=== PATIENT | female | born 1990 | race Caucasian/White ===

== ENCOUNTER → 2019-12-16 | Outpatient (CLI) | payer OTHER | LOC: ZCOL.LAB 14:45 | DX: J02.9 Acute pharyngitis, unspecified (principal); Z20.828 Contact with and (suspected) exposure to other viral communicable diseases ==

== ENCOUNTER 2021-08-30 15:05 | Outpatient (CLI) | payer OTHER ==
[~2021-08-30] VITALS: Ht 152.4 cm; Wt 123.6 kg
[2021-08-30 15:30] VITALS: BP 130/70; PULSE 93; TEMP 98.4
--- NOTE | 2021-08-30 15:30 | NUR ---
G3L2 at 38.0 weeks gestation to LDR3 for a non stress test. She was sent over from the office for extended monitoring after a BPP of 09/02. Patient reports that she "doesn't feel baby much" and reports that she what she has felt is normal for her and baby. She denies CTX, LOF, or VB. Patient changed into fown, wedged to left side in bed. EFMs explained and applied. Plan of care reviewed.
[2021-08-30] MEDS ORDERED: PROTONIX 40MG T40 MG PO (15:35)
--- NOTE | 2021-08-30 16:25 | NUR ---
Reactive NST obtained. Patient states that she has an appointment with Dr. Stone at 1715 and wants to know if she needs to keep it. Per Dr. Stone patient to return to [facility] tomorrow 08/31/21 for a repeat NST and she does not need to attend her appointment. Patient does not have any questions today but would like a SVE. SVE completed and /2. Discharge instructions reviewed with patient and patient discharged home.
== END 2021-08-30 16:28 | disposition home or self-care (01) ==
LOC: LDRO 15:05
DX: O16.3 Unspecified maternal hypertension, third trimester (principal); Z3A.38 38 weeks gestation of pregnancy

== ENCOUNTER 2021-09-07 08:15 | Inpatient (IN) | payer OTHER ==
[~2021-09-07] VITALS: Ht 152.4 cm; Wt 122.7 kg
[~2021-09-07 08:15] MED LIST: PROTONIX 40MG T40 MG PO
[2021-09-09 09:15] VITALS: BP 155/80; PULSE 96; TEMP 98.1
[2021-09-09 09:30] VITALS: BP 142/72; PULSE 98
--- NOTE | 2021-09-09 09:31 | NUR ---
0900 PATIENT HERE FOR COMPLAINTS OF VOMITING AND DIARHEA THIS AM. NO OTHER COMPLAINTS. ASSESSMENT COMPLETE. FHT 120 BABY VERY ACTIVE AND ACCELERATIONS NOTED. NO CONTRACTIONS ON MONITOR OR FELT BY PATIENT. SVE /-[address] COKER CALLED AND UPDATED.
[2021-09-09 09:40] VITALS: BP 130/76; PULSE 80
--- NOTE | 2021-09-09 09:48 | NUR ---
2710 DR COKER REVIEWED STRIP AND ORDERS T0 DISMISS TO HOME. ALL DISCAHRGE INSTRUCTIONS GIVEN TO PATIENT AND WITH VERBAL UNDERSTANDING. DISMISS TO POV
[2021-09-12] VITALS (41 sets, daily range): BP systolic 105–172; BP diastolic 54–101; PULSE 61–99; TEMP 97.6–98.9
--- NOTE | 2021-09-12 07:35 | NUR ---
PT AMBULATORY TO UNIT FOR SCHEDULED IOL. DENIES CONTRACTIONS OR LEAKING OF FLUID, REPORTS POSITIVE MOVEMENT UPON ARRIVAL. PLACED ON EFM/TOCO, CATEGORY 1 STRIP TRACING. VITAL SIGNS STABLE. ON UNIT AT THIS TIME. NOTIFIED OF PT'S ARRIVAL.
[2021-09-12 08:10] LABS: BASO # 0.1 K/mm3 (0.0-0.2); BASO % 0.4 % (0.0-2.0); EOS # 0.1 K/mm3 (0.0-0.7); EOS % 0.7 % (0.0-4.0); GRAN # 11.9 K/mm3 (1.4-6.5); GRAN % 78.3 % (42.2-75.2); LYMPH # 2.2 K/mm3 (1.2-3.4); LYMPH % 14.4 % (20.0-51.0); MEAN CELL VOLUME 78 fl (80.0-100.0); MEAN CORPUSCULAR HEMOGLOBIN 25 pg (27-31); MEAN CORPUSCULAR HGB CONC 32 g/dl (33.0-37.0); MEAN PLATELET VOLUME 10.5 fl (7.4-10.4); MONO # 0.8 K/mm3 (0.1-0.6); MONO % 5.4 % (1.7-9.3); PLATELET COUNT 357 K/mm3 (130-400); RED BLOOD COUNT 4.44 M/mm3 (4.10-5.30)
[2021-09-12 08:11] LABS: HEMATOCRIT 34.7 % (37.0-47.0)
--- NOTE | 2021-09-12 08:13 | NUR ---
AT BEDSIDE, BEDSIDE ULTRASOUND CONFIRMS VERTEX PRESENTATION. SVE /-2, AROM @ 0813, BLOODY SHOW NOTED TO 'S GLOVE WITH AROM. NO ODOR NOTED.
--- NOTE | 2021-09-12 08:30 | NUR ---
FSE & IUPC PLACED AT THIS TIME PER DUE TO MATERNAL HABITUS AND DIFFICULTY TRACING EFM/TOCO.
--- NOTE | 2021-09-12 15:45 | NUR ---
1545: AT BEDSIDE. PT REPORTING INCREASED PRESSURE TO RECTUM WITH CURRENT CONTRACTION. SVE COMPLETE/+2, LABOR ROOM PREPARED FOR DELIVERY, ALL APPROPRIATE STAFF NOTIFIED. 1600: OF VIABLE FEMALE AT THIS TIME. INFANT PLACED ON MATERNAL ABDOMEN, CARE ASSUMED BY HOMERO GILLESPIE. CORD CLAMPED X2 AND CUT BY FOB. PERINEUM REMAINS INTACT FOLLOWING DELIVERY. 1602: OF PLACENTA PER . PITOCIN INFUSING PER PROTOL. FUNDUS FIRM AT UMBILICUS, LOCHIA SMALL WITH NO CLOTS NOTED. WILL CONTINUE CARES PER PROTOCOL. PT STABLE AT THIS TIME.
[2021-09-12] MEDS ORDERED: MOTRIN 800800 MG/TAB PO (16:31)
--- NOTE | 2021-09-12 20:20 | NUR ---
2019- PT ASSISTED UP TO BATHROOM. PT STILL HAVING SOME WEAKNESS IN LEFT LEG. PT ABLE TO VOID WITHOUT DIFFICULTY. PT PERFORMS PERICARE. CLEAN GOWN, PAD, AND PANTIES PROVIDED. NORMAL LOCHIA DISCUSSED. 2029- PT TRANSFERED TO ROOM 207 AMBULATORY. BELONGINGS AND BABY WITH PT. PT ORIENTED TO ROOM AND CALL LIGHTS. QUESTIONS ANSWERED AND PLAN OF CARE DISCUSSED. PT DENIES FURTHER NEEDS AT THIS TIME.
[2021-09-13 03:50] VITALS: BP 126/76; PULSE 74; TEMP 97.9
[2021-09-13 07:20] VITALS: BP 127/70; PULSE 69; TEMP 97.5
--- NOTE | 2021-09-13 09:22 | NUR ---
Initial visit attempt; Patient resting, [employer]ightener left card of congratulations and god's blessings for the of her daughter and information regarding the availability of spiritual care at our hospital.
[2021-09-13 11:57] VITALS: BP 114/62; PULSE 79; TEMP 98.4
[2021-09-13 16:30] VITALS: BP 123/72; PULSE 66; TEMP 98
[2021-09-13 20:00] VITALS: BP 125/90; PULSE 79; TEMP 98
[2021-09-14] VITALS: BP 116/86; PULSE 76; TEMP 98
[2021-09-14 08:05] VITALS: BP 130/81; PULSE 91; TEMP 98
== END 2021-09-14 12:05 | disposition home or self-care (01) | DRG 807 ==
LOC: LDR 09-08 08:15 → OB 09-12 07:14 → LDR 09-12 07:14 → OB 09-12 20:30
PROVIDERS: ADMIT Obstetrics & Gynecology
PROC: 10E0XZZ Delivery of Products of Conception, External Approach (ICD-10-PCS; principal; 2021-09-12)
PROC: 10907ZC Drainage of Amniotic Fluid, Therapeutic from Products of Conception, Via Natural or Artificial Opening (ICD-10-PCS; 2021-09-12)
PROC: 3E033VJ Introduction of Other Hormone into Peripheral Vein, Percutaneous Approach (ICD-10-PCS; 2021-09-12)
DX: O99.820 Streptococcus B carrier state complicating pregnancy (principal); Z37.0 Single live birth; O32.0XX0 Maternal care for unstable lie, not applicable or unspecified; O99.214 Obesity complicating childbirth; Z3A.39 39 weeks gestation of pregnancy; Z86.16 Personal history of COVID-19
CPT/HCPCS: J2540; J2590; J2795; J7120

== ENCOUNTER 2021-09-09 08:50 | Outpatient (CLI) | payer OTHER ==
[~2021-09-09] VITALS: Ht 152.4 cm; Wt 122.7 kg
== END 2021-09-09 09:47 | disposition home or self-care (01) ==
LOC: LDRO 08:50
DX: O26.893 Other specified pregnancy related conditions, third trimester (principal); R11.2 Nausea with vomiting, unspecified; Z3A.39 39 weeks gestation of pregnancy